=== PATIENT | female | born 1955 | race Caucasian/White ===

== ENCOUNTER 2021-11-11 21:27 | Emergency (ER) | payer MEDICARE, OTHER ==
[~2021-11-11] VITALS: Ht 157.5 cm; Wt 70.8 kg
--- NOTE | 2021-11-11 21:50 | NUR ---
PATIENT BIBRA 839 FROM HOME C/O RLQ ABD PAIN SINCE YESTERDAY +N/V. PATIENT IS A/O X 4, RR EVEN AND UNLABORED, NO SOB NOTED. PATIENT CONNECTED TO CARDIAC AND POX MONITOR. PATIENT TAKEN TO ER BED 04
[2021-11-11] MEDS ORDERED: MORPHINE SULFATE INJ 2 MG/ML DISP.SYRIN IV ONE (22:30)
[2021-11-11] MEDS ORDERED: ONDANSETRON HCL/PF 4 MG/2 ML VIAL IVP ONE (22:30)
[2021-11-11] MEDS ORDERED: IV NS 0.9% 1,000 ML BAG IV ONE (22:30)
[2021-11-11 22:31] LABS: BILIRUBIN,URINE NEGATIVE (NEGATIVE); COLOR,URINE YELLOW (YELLOW); LEUKOCYTE ESTERASE ,URINE TRACE (NEGATIVE); NITRITE, URINE NEGATIVE (NEGATIVE); PH,URINE 5.5 (5.0-8.0); PROTEIN,URINE 30 mg/dl (NEGATIVE); UGLUCOSE NEGATIVE (NEGATIVE); UROBILINOGEN,URINE 0.2 EU/dL (0.2)
[2021-11-11 22:48] LABS: RBC,URINE 21-50 /HPF (0-2)
[2021-11-11 22:49] LABS: BACTERIA,URINE Few /HPF (None Seen)
[2021-11-11 22:52] LABS: SQUAMOUS EPITHELIAL CELL,UR Few /HPF (None Seen)
--- NOTE | 2021-11-11 22:56 | NUR ---
BLOOD WORK SENT TO LAB
--- NOTE | 2021-11-11 22:57 | NUR ---
URINE SENT TO LAB
[2021-11-11] MEDS ORDERED: ONDANSETRON HCL/PF 4 MG/2 ML VIAL ONE (23:12)
[2021-11-11] MEDS ORDERED: MORPHINE SULFATE INJ 2 MG/ML DISP.SYRIN ONE (23:12)
[2021-11-11 23:30] LABS: BASOPHILS % (AUTO) 0.4 % (0.0-2.0); EOSINOPHILS % (AUTO) 2.5 % (0.0-6.0); HEMATOCRIT 46 % (33-45); HEMOGLOBIN 15.1 g/dL (11.5-14.8); LYMPHOCYTES # (AUTO) 1.6 K/uL (0.8-4.8); LYMPHOCYTES % (AUTO) 14.9 % (20.0-44.0); MEAN CORPUSCULAR HGB CONC 33 g/dl (31.0-36.0); MEAN CORPUSCULAR VOLUME 88 fL (82-100); MONOCYTES % (AUTO) 9.2 % (2.0-12.0); NEUTROPHILS # (AUTO) 7.9 K/uL (1.8-8.9); PLATELET COUNT (AUTO) 178 K/uL (150-450); WHITE BLOOD COUNT (AUTO) 10.8 K/uL (4.3-11.0)
[2021-11-11] MEDS ORDERED: KETOROLAC TROMETHAMINE INJ 30 MG/ML VIAL IV ONE (23:30)
[2021-11-11] MEDS ORDERED: KETOROLAC TROMETHAMINE INJ 30 MG/ML VIAL ONE (23:32)
--- NOTE | 2021-11-11 23:47 | NUR ---
DONNA LORD [phone]
[2021-11-12 00:16] LABS: ALBUMIN 4.1 g/dL (3.4-5.0); BILIRUBIN,DIRECT 0.2 mg/dL (0.0-0.2); BILIRUBIN,TOTAL 0.9 mg/dL (0.2-1.0); CREATININE 0.9 mg/dL (0.6-1.3); POTASSIUM 4.2 mmol/L (3.5-5.1); TOTAL PROTEIN, SERUM 7.4 g/dL (6.4-8.2)
[2021-11-12] MEDS ORDERED: TAMS-12 PO (00:39)
[2021-11-12] MEDS ORDERED: ONDA4TAB5 PO (00:39)
[2021-11-12] MEDS ORDERED: IBUP-1957 PO (00:39)
[2021-11-12] MEDS ORDERED: HYDR-3972 PO (00:39)
[2021-11-12] MEDS ORDERED: NITROFURANTOIN/MONOHYDRATE MACROCRYSTALS 100 MG CAPSULE ONE (00:47)
[2021-11-12 00:55] VITALS: BP 127/62
--- NOTE | 2021-11-12 00:57 | NUR ---
Patient discharged to home in stable condition. Written and verbal after care instructions given. Patient verbalizes understanding of instruction.IV removed. Catheter intact and site benign. Pressure and 4x4 applied to site. No bleeding noted.
[2021-11-12] MEDS ORDERED: NITROFURANTOIN/MONOHYDRATE MACROCRYSTALS 100 MG CAPSULE PO ONE (01:00)
== END 2021-11-12 02:05 | disposition home or self-care (01) ==
LOC: ER 21:31
DX: N20.0 Calculus of kidney (principal); N39.0 Urinary tract infection, site not specified; I10 Essential (primary) hypertension; Z79.899 Other long term (current) drug therapy
CPT/HCPCS: 36415; 74176; 80048; 80076; 81001; 83690; 85025; 85730; 96361; 96374; 96375; 99284; J1885; J2270; J2405; J7030

== ENCOUNTER 2021-11-16 07:46 | Emergency (ER) | payer MEDICARE, OTHER ==
[~2021-11-16] VITALS: Ht 157.5 cm; Wt 71.2 kg
[~2021-11-16 07:46] MED LIST: HYDR-3972 PO; IBUP-1957 PO; ONDA4TAB5 PO; TAMS-12 PO
--- NOTE | 2021-11-16 07:46 | NUR ---
TO ER BED 6, BIB RA 839 FROM HOME,C/O ABDOMINAL PAIN,SEEN HERE 4 DAYS AGO FOR UTI AND KIDNEYSTONE, AAOX3, BREATHING EVEN AND NON LABORED, CONNECTED TO MONITOR, AWAITING MD RAINES
--- NOTE | 2021-11-16 08:15 | NUR ---
SALINE LOCK ESTABLISHED, BLOOD DRAWN AND SENT TO LAB
--- NOTE | 2021-11-16 08:20 | NUR ---
URINE COLLECTED AND SENT TO LAB
[2021-11-16] MEDS ORDERED: PANTOPRAZOLE 40 MG VIAL IV ONE (09:00)
[2021-11-16] MEDS ORDERED: IV NS 0.9% 1,000 ML BAG IV ONE (09:00)
[2021-11-16] MEDS ORDERED: ONDANSETRON HCL/PF 4 MG/2 ML VIAL IVP ONE (09:00)
[2021-11-16 09:07] LABS: BASOPHILS # (AUTO) 0.1 K/uL (0.0-0.2); BASOPHILS % (AUTO) 0.7 % (0.0-2.0); EOSINOPHILS % (AUTO) 4.8 % (0.0-6.0); HEMATOCRIT 40 % (33-45); HEMOGLOBIN 13.2 g/dL (11.5-14.8); LYMPHOCYTES # (AUTO) 1.3 K/uL (0.8-4.8); LYMPHOCYTES % (AUTO) 14.9 % (20.0-44.0); MEAN CORPUSCULAR HGB CONC 33 g/dl (31.0-36.0); MEAN CORPUSCULAR VOLUME 88 fL (82-100); MONOCYTES # (AUTO) 0.9 K/uL (0.1-1.30); MONOCYTES % (AUTO) 10.2 % (2.0-12.0); NEUTROPHILS # (AUTO) 6.1 K/uL (1.8-8.9); NEUTROPHILS % (AUTO) 69.4 % (43.0-81.0); PLATELET COUNT (AUTO) 157 K/uL (150-450); RED BLOOD CELL COUNT(AUTO) 4.56 MIL/uL (4.0-5.2); WHITE BLOOD COUNT (AUTO) 8.8 K/uL (4.3-11.0)
[2021-11-16 09:16] LABS: BILIRUBIN,URINE NEGATIVE (NEGATIVE); COLOR,URINE YELLOW (YELLOW); LEUKOCYTE ESTERASE ,URINE NEGATIVE (NEGATIVE); NITRITE, URINE NEGATIVE (NEGATIVE); PROTEIN,URINE NEGATIVE (NEGATIVE); UGLUCOSE NEGATIVE (NEGATIVE); UROBILINOGEN,URINE 0.2 EU/dL (0.2)
[2021-11-16] MEDS ORDERED: PANTOPRAZOLE 40 MG VIAL ONE (09:21)
[2021-11-16] MEDS ORDERED: ONDANSETRON HCL/PF 4 MG/2 ML VIAL ONE (09:21)
--- NOTE | 2021-11-16 09:39 | NUR ---
NAMRATA SON [phone]
[2021-11-16 09:47] LABS: ALBUMIN 3.3 g/dL (3.4-5.0); ALKALINE PHOSPHATASE 73 U/L (46-116); ASPARTATE AMINOTRANSFERASE 19 U/L (15-37); BILIRUBIN,DIRECT 0.1 mg/dL (0.0-0.2); BILIRUBIN,TOTAL 0.6 mg/dL (0.2-1.0); CALCIUM, SERUM 9.3 mg/dL (8.5-10.1); CARBON DIOXIDE 21 mmol/L (21-32); CHLORIDE 104 mmol/L (98-107); CREATININE 1.7 mg/dL (0.6-1.3); GLUCOSE 110 mg/dL (74-106); LIPASE 80 U/L (73-393); POTASSIUM 3.9 mmol/L (3.5-5.1); SODIUM SERUM 138 mmol/L (136-145); TOTAL PROTEIN, SERUM 6.9 g/dL (6.4-8.2); UREA NITROGEN, BLOOD 29 mg/dL (7-18)
[2021-11-16 09:56] LABS: BACTERIA,URINE None seen /HPF (None Seen); MUCUS,URINE Few /LPF (None Seen); SQUAMOUS EPITHELIAL CELL,UR Few /HPF (None Seen)
[2021-11-16] MEDS ORDERED: ASPIRIN 325 MG TABLET PO ONE (10:30)
[2021-11-16] MEDS ORDERED: ASPIRIN 325 MG TABLET ONE (10:32)
--- NOTE | 2021-11-16 10:34 | NUR ---
COVID SWAB DONE AND SENT TO LAB
[2021-11-16] MEDS ORDERED: SULF1TAB48 PO (11:19)
[2021-11-16] MEDS ORDERED: BREX1TAB PO (11:19)
[2021-11-16] MEDS ORDERED: CALC-1049 PO (11:19)
[2021-11-16] MEDS ORDERED: CHOL200059 PO (11:19)
[2021-11-16] MEDS ORDERED: TAMS-12 PO (11:19)
[2021-11-16] MEDS ORDERED: LINA145C PO (11:19)
[2021-11-16] MEDS ORDERED: ONDA-97 PO (11:19)
[2021-11-16] MEDS ORDERED: HYDR-3980 PO (11:19)
[2021-11-16] MEDS ORDERED: ZOLP5TAB8 PO (11:19)
[2021-11-16] MEDS ORDERED: BUSP10TA35 PO (11:19)
[2021-11-16] MEDS ORDERED: ASPI-1420 PO (11:19)
[2021-11-16] MEDS ORDERED: IBUP-1957 PO (11:19)
[2021-11-16] MEDS ORDERED: CYCL30DR EACHEYE (11:19)
[2021-11-16] MEDS ORDERED: HYDROCODONE/APAP 5/325MG TABLET ONE (11:29)
[2021-11-16] MEDS ORDERED: HYDROCODONE/APAP 5/325MG TABLET PO ONE (11:30)
[2021-11-16 12:11] LABS: ALANINE AMINOTRANSFERASE 31 U/L (12-78)
[2021-11-16] MEDS ORDERED: IV NS 0.9% 500 ML IV ONE (12:30)
--- NOTE | 2021-11-16 12:46 | NUR ---
PT GOING TO [facility] NUMBER FOR REPORT [phone] ROOM NUMBER [id number] NURSE DIAMOND AMBROCIO TRANSPORT WITH [facility]
--- NOTE | 2021-11-16 12:54 | NUR ---
CALLED [facility] AND SET UP BLS TRANSPORT TO [facility] ETA 1430
--- NOTE | 2021-11-16 13:58 | NUR ---
REPORT GIVEN TO DIAMOND MURILLO FOR [facility]
--- NOTE | 2021-11-16 14:25 | NUR ---
DONNA 2ND SON [phone] CALL HIM FOR ANY UPDATES
[2021-11-16 14:50] VITALS: BP 132/88
--- NOTE | 2021-11-16 14:52 | NUR ---
PT PICKED UP BY TRANSPORT TEAM.
== END 2021-11-16 14:52 | disposition short-term general hospital (02) ==
LOC: ER 07:48
DX: I21.4 Non-ST elevation (NSTEMI) myocardial infarction (principal); R10.13 Epigastric pain; N17.9 Acute kidney failure, unspecified; Z87.442 Personal history of urinary calculi; Z79.899 Other long term (current) drug therapy; I10 Essential (primary) hypertension; Z95.5 Presence of coronary angioplasty implant and graft; Z79.82 Long term (current) use of aspirin
CPT/HCPCS: 36415; 71045; 74018; 80048; 80076; 81001; 83690; 84484 ×3; 85025; 87081; 87426; 93005; 96361; 96374; 96375; 99285; C9113; J2405; J7030; C9803